=== PATIENT | female | born 1985 | race Caucasian/White ===

== ENCOUNTER 2023-10-28 06:55 | Day surgery (SDC) | payer OTHER ==
[2023-10-28] MEDS: Ringers Lactate 1,000 ML IV ONE (07:25)
[2023-10-28] MEDS ORDERED: BUPIVACAINE 0.25% PF 10 ML VIAL ONE (07:56)
[2023-10-28] MEDS ORDERED: BUPIVACAINE 0.5% PF 10 ML VIAL ONE (07:57)
[2023-10-28] MEDS ORDERED: ONDANSETRON 4 MG/2 ML VIAL ONE (08:04)
[2023-10-28] MEDS ORDERED: LIDOCAINE 1% MPF 5 ML VIAL ONE (08:04)
[2023-10-28] MEDS ORDERED: dexAMETHasone 10 MG/ML VIAL ONE (08:04)
[2023-10-28] MEDS ORDERED: FENTANYL CITR 100 MCG/2 ML ONE (08:05)
[2023-10-28] MEDS: ACETAMINOPHEN 500 MG TAB ONE (08:05)
[2023-10-28] MEDS ORDERED: propofoL 200 MG/20 ML VIAL IV ONE (08:05)
[2023-10-28] MEDS ORDERED: MIDAZOLAM HCL 2 MG/2 ML INJ ONE (08:05)
[2023-10-28] MEDS ORDERED: ROCURONIUM 50 MG/5 ML VIAL IV ONE (08:05)
[2023-10-28] MEDS: LIDOCAINE HCL/EPINEPHRINE 20 ML MDV ONE (08:38)
[2023-10-28] MEDS ORDERED: GLYCOPYRROLATE 0.2 MG/ML SYR ONE (08:45)
[2023-10-28] MEDS: ACETAMINOPHEN 160 MG/5 ML UCUP ONE (09:50)
[2023-10-28 11:01] VITALS: BP 113/71; TEMP 97.8; O2SAT 97
--- NOTE | 2023-11-01 17:38 | OP ---
Date of Procedure: 10/28/2023 Surgeon: TEMI NAVARRO Primary Care Physician: Unknown. Preoperative Diagnosis: Chronic tonsillitis. Postoperative Diagnosis: Chronic tonsillitis. Procedure: Tonsillectomy. Anesthesia: General endotracheal anesthesia was administered. I also infiltrated approximately 10 m L of 1% lidocaine with 1:100,000 epinephrine into bilateral tonsillar fossae, soft palate, and uvula. Specimens: Bilateral tonsils submitted to Pathology. Estimated Blood Loss: Less than 5 mL. Findings: Bilateral hypertrophic tonsils, 3/4; no evidence of adenoidal hypertrophy. Complications: None. Disposition: Stable. The patient tolerated the procedure well. Indication For Procedure: Patient is a pleasant 38-year-old female with a history of chronic tonsill ar infections since childhood that had been refractory to outpatient oral antibiotic therapy. These were indications to bring the patient to operative suite for the above-mentioned procedure. She unde rstood. All questions were answered. Risks versus benefits and complications were explained in deta il and a consent form was signed which was placed in the chart. Description Of Procedure: Patient was transferred from the preoperative holding area to the operativ e suite by Department of Anesthesia, placed on the operating room table supine, sedated, and intubate d in normal fashion. Table was rotated to 90 degrees and a shoulder roll was not needed. Head and e yes were covered with sterile blue towels and moist Ray-Liliana was placed over the upper lip for protect ion. A McIvor retractor was introduced to the right oral commissure and directed along the endotracheal tu be and suspended from the Tomlinson stand. Tonsils were removed by retracting the superior poles midline with straight Allis clamps. I dissected through the mucosa down the peritonsillar fascial planes wit h monopolar electrocautery on a setting of 20 for coagulation and 1 of cutting. Dissection continued within the planes whereby the inferior poles were amputated with suction Bovie. Saline irrigation w as introduced into the oral cavity and removed with suction Bovie. The soft palate and uvula were re tracted anteriorly with a Herminia retractor and the adenoid cavity was visualized with a laryngeal mirro r. There was no adenoid tissue. I infiltrated approximately 1% lidocaine with 1:100,000 epinephrine into bilateral tonsillar fossae, and then the flexible orogastric tube was inserted into the esophag us and stomach and all fluid contents were removed. She was then transferred back to Department of Anesthesia in stable condition, subsequently awakened, extubated, and transferred to postoperative care unit in stable condition. She will be discharged h ome on analgesic medication and will follow up in 4 weeks or sooner, if needed. ENEIDA/MATTHEW Voice ID: [id number] Report ID: [id number]
== END 2023-10-28 10:25 | disposition home or self-care (01) ==
LOC: OR 06:55
PROVIDERS: ATTEND Otolaryngology Facial Plastic Surgery
PROC: 0CBPXZZ Excision of Tonsils, External Approach (ICD-10-PCS; principal; 2023-10-28 08:00)
DX: J35.01 Chronic tonsillitis (principal); I49.9 Cardiac arrhythmia, unspecified
CPT/HCPCS: 42826; 81025; 88304; J2704; J2001; J2250; J3010; J1100; J2405; J7120